=== PATIENT | male | born 1940 | race Caucasian/White ===

== ENCOUNTER 2022-05-20 04:05 | Inpatient (IN) | payer OTHER ==
[~2022-05-20] VITALS: Ht 170.2 cm; Wt 90.0 kg
[2022-05-20] MEDS ORDERED: LACTATED RINGER'S 1,000 ML IV ONE (05:00)
[2022-05-20] MEDS ORDERED: ALBUTEROL SULF 2.5 MG/0.5ML(0.5%) NEB SOLN NEB ONE (05:00)
[2022-05-20 06:19] LABS: Albumin 2.3 g/dL (3.4-5.0); Calcium 9.4 mg/dL (8.5-10.1); Potassium 4.6 mmol/L (3.5-5.1)
[2022-05-20 06:21] LABS: BUN/Creatinine Ratio 30.8
[2022-05-20 06:24] LABS: Bilirubin, Total 5.7 mg/dL (0.2-1.0); Total Protein 7.1 g/dL (6.4-8.2)
[2022-05-20] MEDS ORDERED: DOPamine 1600MCG/ML D5W 250 ML IV ONE (06:28)
[2022-05-20] MEDS ORDERED: GLUCAGON EMERG KIT 1mg/1ml IV ONE (06:30)
[2022-05-20 06:33] LABS: Partial Thromboplastin Time 48.6 sec (24.6-33.4)
[2022-05-20 06:36] LABS: INR 4.21 (0.9-1.15)
[2022-05-20] MEDS: DOPamine 1600MCG/ML D5W 250 ML IV SCH ×2 (06:39→21:38)
[2022-05-20 08:00] LABS: Basophils # (auto) 0 10 ^3/uL (0-0.2); Basophils % (auto) 0.5 % (0.0-2.0); Eosinophils # (auto) 0 10 ^3/uL (0-0.8); Eosinophils % (auto) 0.6 % (0.0-7.0); Hematocrit 48.3 % (41.0-53.0); Hemoglobin 16.2 g/dL (13.5-17.5); Lymphocytes # (auto) 0.8 10 ^3/uL (0.4-5.4); Lymphocytes % (auto) 11.8 % (10.0-50.0); Mean Corpuscular Hemoglobin 30.8 pg (28.0-32.0); Mean Corpuscular Hgb Conc. 33.6 g/dL (32.0-36.0); Mean Corpuscular Volume 91.7 fL (80.0-100.0); Monocytes # (auto) 0.6 10 ^3/uL (0-1.3); Monocytes % (auto) 10.2 % (0.0-12.0); Neutrophils # (auto) 4.9 10 ^3/uL (1.6-8.6); Neutrophils % (auto) 76.9 % (37.0-80.0); Nucleated Red Blood Cells % 0.5 %; Red Blood Cells 5.27 10^6/uL (4.5-5.90); White Blood Cell 6.4 10^3/uL (4.4-10.8)
[2022-05-20 08:01] LABS: Red Cell Distribution Width 20.1 % (11.8-14.3)
[2022-05-20] MEDS ORDERED: IPRATROPIUM BROM 0.5 MG/2.5ML INH SOL NEB PRN (11:00)
[2022-05-20] MEDS ORDERED: NITROGLYCERIN 0.4 MG SL TAB SL PRN (11:00)
[2022-05-20] MEDS ORDERED: FUROSEMIDE 40 MG/4 ML VIAL IV ONE (11:00)
[2022-05-20] MEDS ORDERED: MORPHINE SULFATE INJ 2 MG/ml SYRG IV PRN (11:00)
[2022-05-20] MEDS ORDERED: ATROPINE SULF 1 MG/10ml SYR IV PRN (11:00)
[2022-05-20] MEDS ORDERED: SODIUM CHLORIDE 0.9% 1,000 ML IV ONE (11:00)
[2022-05-20] MEDS ORDERED: ALBUTEROL SULF 2.5 MG/0.5ML(0.5%) NEB SOLN NEB PRN (11:00)
[2022-05-20] MEDS ORDERED: ATOR20TA PO (11:10)
[2022-05-20] MEDS ORDERED: ALBUMIN 25% 100 ML IV ONE ×2 (11:30→18:45)
[2022-05-20] MEDS ORDERED: PANTOPRAZOLE 40 MG/10 ML VIAL INJ IV ONE (11:45)
[2022-05-20 12:06] LABS: Cholesterol 54 mg/dL (< 200)
[2022-05-20 12:10] LABS: HDL Cholesterol 16 mg/dL (40-59); LDL Cholesterol 44 mg/dL (< 100); Triglycerides 59 mg/dL (< 150)
[2022-05-20] MEDS ORDERED: ATROPINE SULFATE 1 MG/1 ML VIAL ONE (12:56)
[2022-05-20 13:06] VITALS: BP 111/61
[2022-05-20] MEDS: ALBUTEROL SULF 2.5 MG/0.5ML(0.5%) NEB SOLN NEB SCH ×3 (13:07→23:38)
[2022-05-20] MEDS: IPRATROPIUM BROM 0.5 MG/2.5ML INH SOL NEB SCH ×3 (13:07→23:38)
[2022-05-20] MEDS ORDERED: HEPARIN DRIP/D5W 100UNITS/ML 250 ML IV SCH ×2 (13:45→23:00)
[2022-05-20 15:41] LABS: Basophils # (auto) 0.2 10 ^3/uL (0-0.2); Basophils % (auto) 3.2 % (0.0-2.0); Eosinophils # (auto) 0.1 10 ^3/uL (0-0.8); Eosinophils % (auto) 0.7 % (0.0-7.0); Hematocrit 47.7 % (41.0-53.0); Hemoglobin 15.7 g/dL (13.5-17.5); Lymphocytes # (auto) 0.6 10 ^3/uL (0.4-5.4); Lymphocytes % (auto) 8.3 % (10.0-50.0); Mean Corpuscular Hemoglobin 30.7 pg (28.0-32.0); Mean Corpuscular Hgb Conc. 32.9 g/dL (32.0-36.0); Mean Corpuscular Volume 93.5 fL (80.0-100.0); Monocytes # (auto) 0.7 10 ^3/uL (0-1.3); Monocytes % (auto) 10.5 % (0.0-12.0); Neutrophils # (auto) 5.2 10 ^3/uL (1.6-8.6); Neutrophils % (auto) 77.3 % (37.0-80.0); Nucleated Red Blood Cells % 0.3 %; White Blood Cell 6.8 10^3/uL (4.4-10.8)
[2022-05-20] MEDS: FUROSEMIDE 40 MG/4 ML VIAL IV SCH (18:00)
[2022-05-20] MEDS: methylPREDNISolone SOD SUCC 125 MG/2 ML VL IV SCH (22:09)
[2022-05-20] MEDS: DOBUTamine 1000MCG/ML 250 ML IV SCH (22:10)
[2022-05-20] MEDS ORDERED: AMIODARONE HCL 150 MG in D5W 5% 100 ML IV ONE (22:45)
[2022-05-20] MEDS ORDERED: AMIODARONE HCL (50 MG/ ML) 3 ML VIAL IV ONE (22:46)
[2022-05-20] MEDS ORDERED: AMIODARONE 450mg/250ml AE 250 ML IV SCH (23:00)
[2022-05-20] MEDS ORDERED: AMIODARONE 450mg/250ml AE 250 ML IV ONE (23:19)
[2022-05-21] MEDS ORDERED: ALBUMIN 5% 250 ML IV ONE (02:30)
[2022-05-21] MEDS: IPRATROPIUM BROM 0.5 MG/2.5ML INH SOL NEB SCH ×4 (05:28→23:42)
[2022-05-21] MEDS: ALBUTEROL SULF 2.5 MG/0.5ML(0.5%) NEB SOLN NEB SCH ×4 (05:28→23:43)
[2022-05-21] MEDS: FUROSEMIDE 40 MG/4 ML VIAL IV SCH ×2 (06:00→18:02)
[2022-05-21 06:19] LABS: BUN/Creatinine Ratio 30.5; Calcium 9.6 mg/dL (8.5-10.1); Potassium 4.5 mmol/L (3.5-5.1)
[2022-05-21 06:23] LABS: Bilirubin, Total 8.4 mg/dL (0.2-1.0); Total Protein 7.2 g/dL (6.4-8.2)
[2022-05-21 07:04] LABS: Basophils # (auto) 0 10 ^3/uL (0-0.2); Basophils % (auto) 0.1 % (0.0-2.0); Eosinophils # (auto) 0 10 ^3/uL (0-0.8); Eosinophils % (auto) 0.1 % (0.0-7.0); Hematocrit 46.1 % (41.0-53.0); Lymphocytes # (auto) 0.2 10 ^3/uL (0.4-5.4); Lymphocytes % (auto) 3.7 % (10.0-50.0); Mean Corpuscular Hemoglobin 30.9 pg (28.0-32.0); Mean Corpuscular Hgb Conc. 32.6 g/dL (32.0-36.0); Mean Corpuscular Volume 94.9 fL (80.0-100.0); Monocytes # (auto) 0.2 10 ^3/uL (0-1.3); Monocytes % (auto) 3.6 % (0.0-12.0); Neutrophils # (auto) 5.5 10 ^3/uL (1.6-8.6); Neutrophils % (auto) 92.5 % (37.0-80.0); Nucleated Red Blood Cells % 0.2 %; Red Blood Cells 4.86 10^6/uL (4.5-5.90); White Blood Cell 5.9 10^3/uL (4.4-10.8)
[2022-05-21] MEDS ORDERED: PHENYLEPHRINE IV 250 ML IV ONE (07:22)
[2022-05-21 07:27] LABS: Red Cell Distribution Width 20.2 % (11.8-14.3)
[2022-05-21] MEDS: PHENYLEPHRINE IV 250 ML IV SCH ×2 (07:30→16:04)
[2022-05-21] MEDS: DOBUTamine 1000MCG/ML 250 ML IV SCH ×2 (08:19→16:06)
[2022-05-21 08:59] LABS: INR 6.07 (0.9-1.15)
[2022-05-21 09:00] LABS: Partial Thromboplastin Time > 139.0 sec (24.6-33.4)
[2022-05-21] MEDS: methylPREDNISolone SOD SUCC 125 MG/2 ML VL IV SCH ×2 (09:41→22:01)
[2022-05-21] MEDS: PANTOPRAZOLE 40 MG/10 ML VIAL INJ IV SCH (09:42)
[2022-05-21] MEDS ORDERED: ENOXAPARIN SOD 40 MG/0.4 ML SYRINGE SC SCH (10:00)
[2022-05-21] MEDS ORDERED: POTASSIUM CHL 20 Meq TABLET PO SCH (10:00)
[2022-05-21] MEDS ORDERED: AMIODARONE 450mg/250ml AE 250 ML IV SCH (12:45)
[2022-05-21 17:35] LABS: Urine Bacteria MOD /hpf (None Seen); Urine Blood 3+ /uL (Negative); Urine Mucus FEW (None Seen); Urine Specific Gravity 1.016 (1.001-1.035); Urine WBC 2349 /hpf (0 - 3); Urine WBC Clumps PRESENT /hpf (None Seen)
[2022-05-21] MEDS ORDERED: FUROSEMIDE 40 MG/4 ML VIAL IV SCH (18:00)
[2022-05-22] MEDS: PHENYLEPHRINE IV 250 ML IV SCH ×4 (00:59→12:22)
[2022-05-22] MEDS: DOBUTamine 1000MCG/ML 250 ML IV SCH ×2 (01:48→08:44)
[2022-05-22] MEDS: IPRATROPIUM BROM 0.5 MG/2.5ML INH SOL NEB SCH ×2 (06:00→12:00)
[2022-05-22] MEDS: FUROSEMIDE 40 MG/4 ML VIAL IV SCH (06:00)
[2022-05-22] MEDS: ALBUTEROL SULF 2.5 MG/0.5ML(0.5%) NEB SOLN NEB SCH ×2 (06:00→12:00)
[2022-05-22 06:43] LABS: Basophils # (auto) 0 10 ^3/uL (0-0.2); Basophils % (auto) 0.1 % (0.0-2.0); Eosinophils # (auto) 0 10 ^3/uL (0-0.8); Hematocrit 44.5 % (41.0-53.0); Hemoglobin 14.9 g/dL (13.5-17.5); Lymphocytes # (auto) 0.2 10 ^3/uL (0.4-5.4); Lymphocytes % (auto) 2.4 % (10.0-50.0); Mean Corpuscular Hemoglobin 31.4 pg (28.0-32.0); Mean Corpuscular Hgb Conc. 33.5 g/dL (32.0-36.0); Mean Corpuscular Volume 93.8 fL (80.0-100.0); Monocytes # (auto) 0.5 10 ^3/uL (0-1.3); Monocytes % (auto) 5.1 % (0.0-12.0); Neutrophils # (auto) 8.3 10 ^3/uL (1.6-8.6); Neutrophils % (auto) 92.4 % (37.0-80.0); Nucleated Red Blood Cells % 0.1 %; Red Blood Cells 4.75 10^6/uL (4.5-5.90)
[2022-05-22 06:59] LABS: Anion Gap 10 (5-15); BUN/Creatinine Ratio 37.9; Blood Urea Nitrogen 64 mg/dL (7-18); Calcium 9.5 mg/dL (8.5-10.1); Carbon Dioxide 29 mmol/L (21-32); Chloride 92 mmol/L (98-107); GFR African American 51 mL/min; GFR Non-African American 42 mL/min; Glucose 124 mg/dL (74-106); Potassium 4.9 mmol/L (3.5-5.1); Sodium 131 mmol/L (136-145)
[2022-05-22 07:14] LABS: Red Cell Distribution Width 20.2 % (11.8-14.3)
[2022-05-22 07:15] LABS: INR 3.96 (0.9-1.15); Partial Thromboplastin Time 54.7 sec (24.6-33.4)
[2022-05-22] MEDS ORDERED: DOPamine 1600MCG/ML D5W 250 ML IV SCH (08:00)
[2022-05-22] MEDS ORDERED: NOREPINEPHRINE 8 MG/250ML KIT 250 ML IV ONE (08:38)
[2022-05-22] MEDS: NOREPINEPHRINE 8 MG/250ML KIT 250 ML IV SCH ×2 (08:45→13:14)
[2022-05-22] MEDS ORDERED: cefTRIAXone 1GM/50ML D5W 50 ML IV SCH (09:00)
[2022-05-22] MEDS ORDERED: ENOXAPARIN SOD 40 MG/0.4 ML SYRINGE SC SCH (10:00)
[2022-05-22] MEDS: PANTOPRAZOLE 40 MG/10 ML VIAL INJ IV SCH (10:31)
[2022-05-22] MEDS: methylPREDNISolone SOD SUCC 125 MG/2 ML VL IV SCH (10:31)
[2022-05-22] MEDS ORDERED: LORazepam 2MG/ML-1ML VIAL IV PRN (15:30)
[2022-05-22] MEDS ORDERED: MORPHINE SULFATE INJ 2 MG/ml SYRG IV PRN (15:30)
[2022-05-22 17:20] VITALS: BP 138/95
== END 2022-05-22 22:13 ==
LOC: EDBD 04:05 → ER 04:05 → TELE 10:52 → TELE-EAST 05-22 17:24 → EAST 05-22 18:10
PROVIDERS: ADMIT Registered Nurse; ATTEND Nurse Practitioner Acute Care
PROC: 05HA33Z Insertion of Infusion Device into Left Brachial Vein, Percutaneous Approach (ICD-10-PCS; principal; 2022-05-22)
PROC: B54NZZA Ultrasonography of Left Upper Extremity Veins, Guidance (ICD-10-PCS; 2022-05-22)
DX: I13.0 Hypertensive heart and chronic kidney disease with heart failure and stage 1 through stage 4 chronic kidney disease, or unspecified chronic kidney disease (principal); I50.43 Acute on chronic combined systolic (congestive) and diastolic (congestive) heart failure; I21.A1 Myocardial infarction type 2; J96.21 Acute and chronic respiratory failure with hypoxia; N17.0 Acute kidney failure with tubular necrosis; E44.0 Moderate protein-calorie malnutrition; E87.1 Hypo-osmolality and hyponatremia; I82.411 Acute embolism and thrombosis of right femoral vein; I31.39 Other pericardial effusion (noninflammatory); D69.6 Thrombocytopenia, unspecified; E07.9 Disorder of thyroid, unspecified; E66.9 Obesity, unspecified; I27.20 Pulmonary hypertension, unspecified; I46.9 Cardiac arrest, cause unspecified; Z66 Do not resuscitate; Z51.5 Encounter for palliative care; I48.91 Unspecified atrial fibrillation; J44.9 Chronic obstructive pulmonary disease, unspecified; J84.10 Pulmonary fibrosis, unspecified; N18.9 Chronic kidney disease, unspecified; R73.03 Prediabetes; T46.0X5A Adverse effect of cardiac-stimulant glycosides and drugs of similar action, initial encounter; Z20.822 Contact with and (suspected) exposure to COVID-19; Z68.31 Body mass index [BMI] 31.0-31.9, adult; Y92.89 Other specified places as the place of occurrence of the external cause; I73.9 Peripheral vascular disease, unspecified; R00.1 Bradycardia, unspecified; E78.5 Hyperlipidemia, unspecified
CPT/HCPCS: 36415; 70450; 71045; 72125; 76604; 80048; 80053; 80061; 80162; 81001; 83036; 83735; 83880; 84443; 84484; 85025; 85379; 85610; 85730; 87426; 93005; 93306; 93925; 93970; 94640; 96361; 96374; 99291; C9113; G0378; J0461; J0696; J7060; P9047